=== PATIENT | female | born 1990 | race Caucasian/White ===

== ENCOUNTER 2018-08-29 17:18 | Emergency (ER) | payer OTHER ==
[2018-08-29] MEDS ORDERED: ALBUTEROL NEB 2.5 MG/3 ML INH STA (18:33)
[2018-08-29] MEDS ORDERED: DEXAMETHASONE 10 MG/ML VIAL PO STA (18:33)
--- NOTE | 2018-08-29 18:36 | ED Physician Documentation ---
PD HPI URI - Stated complaint Stated Complaint: SOB/CHEST TIGHTNESS/COUGH - Chief complaint Chief Complaint: Resp - History obtained from History obtained from: Patient - History of Present Illness Timing - onset: Yesterday Timing duration: Days (2) Timing details: Gradual onset Pain level max: 0 Pain level now: 0 Associated symptoms: Nasal congestion, Rhinorrhea, Dry cough, Dyspnea (wheezing). No: Fever, Chills Contributing factors: COPD / asthma (Used to use inhalers but has not had to for several years) Improves by: Rest Worsened by: Activity, Breathing Recently seen: Not recently seen Review of Systems Constitutional: denies: Fever, Chills Ears: denies: Ear pain Nose: reports: Rhinorrhea / runny nose, Congestion Throat: denies: Sore throat Cardiac: denies: Chest pain / pressure Respiratory: reports: Cough, Wheezing GI: denies: Abdominal Pain, Nausea, Vomiting, Diarrhea Skin: denies: Rash Musculoskeletal: denies: Neck pain, Back pain Neurologic: denies: Headache PD PAST MEDICAL HISTORY - Past Medical History Past Medical History: Yes Respiratory: Asthma - Past Surgical History Past Surgical History: No - Present Medications Home Medications: Ambulatory Orders Medication Instructions Recorded Confirmed Albuterol Sulf [Ventolin Hfa 1 - 2 puffs INH Q4HR PRN #1 inhaler 08/29/18 Inhaler] Norethindrone [Ada-Be] 0.35 mg PO DAILY 08/29/18 08/29/18 Pseudoephedrine [Sudafed] 30 mg PO Q6H PRN #20 tablet 08/29/18 - Allergies Allergies/Adverse Reactions: Allergies Allergy/AdvReac Type Severity Reaction Status Date / Time Penicillins Allergy Unknown Verified 09/02/16 20:13 cefaclor [From Ceclor] AdvReac Unknown Verified 08/29/18 17:24 - Social History Does the pt smoke?: No Smoking Status: Never smoker Does the pt drink ETOH?: No Does the pt have substance abuse?: No - Immunizations Immunizations are current?: Yes - POLST Patient has POLST: No PD ED PE NORMAL - Vitals Vital signs reviewed: Yes - General General: Alert and oriented X 3, No acute distress, Well developed/nourished - HEENT HEENT: PERRL, Ears normal, Moist mucous membranes, Pharynx benign - Neck Neck: Supple, no meningeal sign - Cardiac Cardiac: RRR - Respiratory Respiratory: No respiratory distress, Other (Mild wheezing bilaterally) - Abdomen Abdomen: Soft, Non tender, Non distended - Derm Derm: Warm and dry - Neuro Neuro: Alert and oriented X 3 - Psych Psych: Normal mood, Normal affect Results - Vitals Vitals: Vital Signs - 24 hr 08/29/18 08/29/18 08/29/18 17:22 17:24 19:07 Temperature 36.2 C L Heart Rate 90 90 77 Respiratory 20 20 18 Rate Blood Pressure 115/70 115/70 O2 Saturation 100 100 08/29/18 19:20 Temperature Heart Rate 77 Respiratory 18 Rate Blood Pressure 116/72 O2 Saturation 100 Oxygen O2 Source Room air PD MEDICAL DECISION MAKING - ED course Complexity details: reviewed results, re-evaluated patient, considered differential, d/w patient ED course: 28-year-old female with what appears to be a viral upper respiratory infection complicated by wheezing. Feels better after nebulizer treatment. Will refill her inhaler for her. Will also use Sudafed for home. She is well-appearing, nontoxic. No hypoxia or respiratory distress. Patient counseled regarding signs and symptoms for which I believe and urgent re-evaluation would be necessary. Patient with good understanding of and agreement to plan and is comfortable going home at this time This document was made in part using voice recognition software. While efforts are made to proofread this document, sound alike and grammatical errors may occur. Departure - Departure Disposition: 01 Home, Self Care Clinical Impression: Upper respiratory infection, viral Condition: Good Instructions: ED URI Viral W Wheezing Follow-Up: your,doctor in 1week [Other] Prescriptions: Albuterol Sulf [Ventolin Hfa Inhaler] 1 - 2 puffs INH Q4HR PRN #1 inhaler PRN Reason: Shortness Of Air/Wheezing Pseudoephedrine [Sudafed] 30 mg PO Q6H PRN #20 tablet PRN Reason: Nasal Congestion Comments: Use the medications as prescribed. Return if you worsen. Follow-up with your doctor for further care. Discharge Date/Time: 08/29/18 19:20
[2018-08-29 19:21] VITALS: BP 116/72
== END 2018-08-29 19:20 | disposition home or self-care (01) ==
LOC: ED 17:18
DX: J06.9 Acute upper respiratory infection, unspecified (principal); J45.909 Unspecified asthma, uncomplicated
CPT/HCPCS: 94640; 94664; 99283